=== PATIENT | female | born 1985 | race Two or more races ===

== ENCOUNTER 2021-06-14 16:09 | Emergency (ER) | payer OTHER ==
[~2021-06-14] VITALS: Ht 160 cm; Wt 65.8 kg
[2021-06-14] MEDS ORDERED: TUSNEL LIQUID178 ML PO (17:02)
[2021-06-14] MEDS ORDERED: ZITHROMAX500 MG PO (17:02)
== END 2021-06-14 17:10 | disposition home or self-care (01) ==
LOC: ER 16:09
DX: R07.89 Other chest pain (principal)

== ENCOUNTER 2021-11-27 23:23 | Emergency (ER) | payer OTHER ==
[~2021-11-27] VITALS: Ht 160 cm; Wt 64.9 kg
[~2021-11-27 23:23] MED LIST: TUSNEL LIQUID178 ML PO; ZITHROMAX500 MG PO
[2021-11-28] MEDS ORDERED: TUSNEL LIQUID178 ML PO (01:37)
[2021-11-28] MEDS ORDERED: MEDROLPACK PO (01:37)
== END 2021-11-28 01:52 | disposition home or self-care (01) ==
LOC: ER 23:23
DX: U07.1 COVID-19 (principal); R06.02 Shortness of breath